=== PATIENT | male | born 1955 | race Caucasian/White ===

== ENCOUNTER → 2019-06-12 | Day surgery (SDC) | payer OTHER ==
[~2019-06-12] MED LIST: ACET325T21 PO; ALBU2.5V8 INH; ALBUTEROL SULFATE 2.5 MG/3 ML NEBU. NEB PRN; ASPI81TA59 PO; ATROPINE 0.5 MG/5 ML DISP.SYRIN. IV PRN; CANA300T PO; CETI10TA16 PO; FAMO40TA4 PO; GABA-586 PO; GLIM4TAB8 PO; INSU100I13 SQ; IV RINGERS SOLUTION,LACTATED 1,000 ML IV SCH; LIRA0.6P2 SQ; LISI2.5T PO; METF10007 PO; MULT-735 PO; ONDANSETRON PF 4 MG/2 ML VIAL. IV PRN; PHENOL ORAL SPRAY 177ML BOTTLE. MM PRN; PROPOFOL 40 ML IV ONE; SILD50TA PO; diphenhydrAMINE 50 MG/ML VIAL IV PRN
[2019-06-12 09:29] VITALS: BP 110/80
--- NOTE | 2019-06-12 14:50 | EKG ---
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
== END ==
LOC: SURG 07:12
PROVIDERS: ATTEND Surgery
DX: Z12.11 Encounter for screening for malignant neoplasm of colon (principal); K63.89 Other specified diseases of intestine
CPT/HCPCS: 45378; J2704; J7120